=== PATIENT | female | born 1980 | race Caucasian/White ===

== ENCOUNTER 2018-03-27 10:13 | Emergency (ER) | payer SELFPAY ==
[2018-03-27 10:26] VITALS: BP 122/95
[2018-03-27] MEDS ORDERED: Ibuprofen TAB* 600 MG PO ONE (10:38)
--- NOTE | 2018-03-27 11:46 | RAD ---
INDICATION: Left shoulder pain COMPARISON: None TECHNIQUE: Routine frontal, Y and axial views were obtained. FINDINGS: There is mild AC joint osteoarthritis. The glenohumeral joint is intact. The soft tissues are normal. IMPRESSION: AC JOINT OSTEOARTHRITIS
[2018-03-27 12:01] LABS: ABS Basophils 0.1 10^3/ul (0-0.2); ABS Eosinophils 0.3 10^3/ul (0-0.6); ABS Lymphocytes 2.1 10^3/ul (1.0-4.8); ABS Monocytes 0.8 10^3/ul (0-0.8); ABS Neutrophils 6.1 10^3/ul (1.5-7.7); ABS Nucleated RBC 0 10^3/ul; Eosinophil % 2.8 % (0-6); Hematocrit 37 % (35-47); Hemoglobin 12.5 g/dl (12.0-16.0); Lymphocyte % 22.3 % (25-47); Mean Corpuscular HGB Conc 34 g/dl (31-36); Mean Corpuscular Hemoglobin 29 pg (27-31); Mean Corpuscular Volume 86 fL (80-97); Mean Platelet Volume 8.5 um3 (7.4-10.4); Nucleated Red Blood Cells % 0; Platelet Count 216 10^3/ul (150-450); Red Blood Count 4.32 10^6/ul (4.0-5.4); Red Cell Distribution Width 13 % (10.5-15); White Blood Count 9.3 10^3/ul (3.5-10.8)
[2018-03-27 12:30] LABS: EGFR Non-African American 94.2 (>60)
--- NOTE | 2018-03-27 18:28 | ED ---
Upper Extremity Pain - HPI Summary HPI Summary: Patient is a 37-year-old female who presents emergency department for left shoulder pain times 1.5 wks. pain presently got worse over the last few days and patient presented to the emergency department. 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 states she also noticed that her shoulder was feeling warm or to denies fever, chills, nausea, vomiting. Denies IV drug use. Symptoms are mild in severity. Moving left arm makes symptoms worse. Rest symptoms better. - History of Current Complaint Chief Complaint: EDShoulderClaMakj Stated Complaint: LT SHOULDER INJURY Time Seen by Provider: 03/27/18 10:32 Hx Obtained From: Patient - Allergies/Home Medications Allergies/Adverse Reactions: Allergies Allergy/AdvReac Type Severity Reaction Status Date / Time No Known Allergies Allergy Verified 03/27/18 10:26 PMH/Surg Hx/FS Hx/Imm Hx Previously Healthy: Yes Infectious Disease History: Yes Infectious Disease History: Denies: Traveled Outside the [place] in Last 30 Days - Social History Alcohol Use: Occasionally Substance Use Type: Reports: None Smoking Status (MU): Heavy Every Day Tobacco Smoker Review of Systems Constitutional: Negative Negative: Fever, Chills Positive: Other - left shoulder pain Negative: Weakness, Paresthesia, Numbness All Other Systems Reviewed And Are Negative: Yes Physical Exam Triage Information Reviewed: Yes Vital Signs On Initial Exam: Initial Vitals Temp Pulse Resp BP Pulse Ox 98.3 F 124 18 122/95 98 03/27/18 10:22 03/27/18 10:22 03/27/18 10:22 03/27/18 10:22 03/27/18 10:22 Vital Signs Reviewed: Yes Appearance: Positive: Pain Distress - Patient sitting on bed, holding left arm to chest. Appears in pain but nontoxic. Skin: Positive: Warm, Dry Head/Face: Positive: Normal Head/Face Inspection Eyes: Positive: Normal Neck: Positive: Supple, Nontender Musculoskeletal: Positive: Other - Left arm is neurovascularly intact with normal strength. Left shoulder does appear to increased warmth. Patient has significant pain in palpation with light touch over the AC region. Limited range of motion with abduction secondary to pain. No induration, wounds. Neurological: Positive: Normal, CN Intact II-III Psychiatric: Positive: Affect/Mood Appropriate Diagnostics - Vital Signs Vital Signs Temp Pulse Resp BP Pulse Ox 03/27/18 10:22 98.3 F 124 18 122/95 98 - Laboratory Lab Results: Lab Results 03/27/18 03/27/18 Range/Units 11:56 11:56 WBC 9.3 (3.5-10.8) 10^3/ul RBC 4.32 (4.0-5.4) 10^6/ul Hgb 12.5 (12.0-16.0) g/dl Hct 37 (35-47) % MCV 86 (80-97) fL MCH 29 (27-31) pg MCHC 34 (31-36) g/dl RDW 13 (10.5-15) % Plt Count 216 (150-450) 10^3/ul MPV 8.5 (7.4-10.4) um3 Neut % (Auto) 65.3 (38-83) % Lymph % (Auto) 22.3 L (25-47) % Republic % (Auto) 8.6 H (0-7) % Eos % (Auto) 2.8 (0-6) % Baso % (Auto) 1.0 (0-2) % Absolute Neuts (auto) 6.1 (1.5-7.7) 10^3/ul Absolute Lymphs (auto) 2.1 (1.0-4.8) 10^3/ul Absolute Monos (auto) 0.8 (0-0.8) 10^3/ul Absolute Eos (auto) 0.3 (0-0.6) 10^3/ul Absolute Basos (auto) 0.1 (0-0.2) 10^3/ul Absolute Nucleated RBC 0 10^3/ul Nucleated RBC % 0 Sodium 137 L (139-145) mmol/L Potassium 4.3 (3.5-5.0) mmol/L Chloride 104 (101-111) mmol/L Carbon Dioxide 27 (22-32) mmol/L Anion Gap 6 (2-11) mmol/L BUN 12 (6-24) mg/dL Creatinine 0.70 (0.51-0.95) mg/dL Est GFR ( Amer) 121.1 (>60) Est GFR (Non-Af Amer) 94.2 (>60) BUN/Creatinine Ratio 17.1 (8-20) Glucose 97 (70-100) mg/dL Calcium 9.5 (8.6-10.3) mg/dL C-React Prot High Sens 1.03 mg/L Result Diagrams: 03/27/18 11:56 03/27/18 11:56 Lab Statement: Any lab studies that have been ordered have been reviewed, and results considered in the medical decision making process. Course/Dx - Course Course Of Treatment: Patient presenting to the ER for left shoulder pain. She does have mild increased warmth over the left shoulder joint and she has significant pain with light palpation and movement. She is afebrile. Concerned for possible infectious process. Will obtain labs and x-ray. She was given Motrin for pain. X-ray shows arthritic changes without acute findings , reading per radiology. CBC and CRP are totally normal. Suspicion for infection at this point is extremely low. Suspect bursitis given patient's pain location. We'll treat with anti-inflammatories, ice and rest. Results were discussed with patient. She is going to follow up with her family doctor if symptoms persist. To return to the ER symptoms change or worsen. Patient understands and agrees with plan. - Diagnoses Differential Diagnosis/HQI/PQRI: Positive: Arthritis, Contusion, Fracture ( Closed), Septic Arthritis, Strain, Sprain Provider Diagnoses: Bursitis, shoulder, Shoulder pain Discharge - Sign-Out/Discharge Documenting (check all that apply): Discharge/Admit/Transfer - Discharge Plan Condition: Good Disposition: HOME Patient Education Materials: Shoulder Bursitis (ED) Referrals: Saba Mcneal NP [Primary Care Provider] - Additional Instructions: Schedule a follow up appointment with your PCP if symptoms continue Ice and rest shoulder Ibuprofen 800mg every 8 hours x 10 days Return to ER if symptoms change or worsen - Billing Disposition and Condition Condition: GOOD Disposition: HOME
== END 2018-03-27 12:54 | disposition home or self-care (01) ==
LOC: ED 10:13
DX: M75.52 Bursitis of left shoulder (principal); F17.200 Nicotine dependence, unspecified, uncomplicated
CPT/HCPCS: 36415; 80048; 85025; 86141; 99282; A9270-GY